=== PATIENT | male | born 1985 | race Caucasian/White ===

== ENCOUNTER 2017-04-14 16:24 | Emergency (ER) | payer OTHER ==
[~2017-04-14] VITALS: Ht 182.9 cm; Wt 141.1 kg
[2017-04-14 16:34] VITALS: TEMP 36.7; Ht 182.9 cm; Wt 141.1 kg
--- NOTE | 2017-04-14 17:20 | DIAGNOSTIC IMAGING REPORT ---
CHEST ONE VIEW PORTABLE HISTORY: Short of breath. COMPARISON: None. FINDINGS: No pneumothorax. No pleural effusions. The lungs are clear. The heart is mildly enlarged. IMPRESSION: Mild enlargement of the cardiac silhouette. Otherwise, no acute process within the chest. Electronically signed by: Myke Merritt M.D. 04/14/2017 5:19 PM Dictated Date/Time: 04/14/2017 5:18 PM
[2017-04-14 17:51] LABS: BASO % 0.1 %; BASO ABS # 0.01 K/uL (0-0.2); EOS % 2.7 %; EOS ABS # 0.18 K/uL (0-0.5); HEMATOCRIT 40.8 % (42-52); HEMOGLOBIN 14.3 g/dL (14.0-18.0); IG# 0.02 K/uL (0.00-0.02); LYMPH % 27.9 %; LYMPH ABS # 1.87 K/uL (1.2-3.4); MEAN CELL VOLUME 83.8 fL (80-100); MEAN CORPUSCULAR HEMOGLOBIN 29.4 pg (25-34); MEAN PLATELET VOLUME 8.8 fL (7.4-10.4); MONO % 9.1 %; MONO ABS # 0.61 K/uL (0.11-0.59); NEUT % 59.9 %; NEUT ABS # 4.02 K/uL (1.4-6.5); PLATELET COUNT 262 K/uL (130-400); RED CELL DISTRIBUTION WIDTH CV 12.7 % (11.5-14.5); RED CELL DISTRIBUTION WIDTH SD 38.4 fL (36.4-46.3); WHITE BLOOD COUNT 6.71 K/uL (4.8-10.8)
[2017-04-14 18:10] LABS: ALBUMIN 3.5 gm/dl (3.4-5.0); ALT/SGPT 28 U/L (12-78); BLOOD UREA NITROGEN 15 mg/dl (7-18); CALCIUM 8.5 mg/dl (8.5-10.1); CARBON DIOXIDE 28 mmol/L (21-32); CREATININE 1.22 mg/dl (0.60-1.40); GLUCOSE 95 mg/dl (70-99); LIPASE 93 U/L (73-393); POTASSIUM 3.6 mmol/L (3.5-5.1); SODIUM 138 mmol/L (136-145)
[2017-04-14 18:16] LABS: ALKALINE PHOSPHATASE 75 U/L (45-117); AST/SGOT 13 U/L (15-37); TOTAL PROTEIN 7.2 gm/dl (6.4-8.2)
--- NOTE | 2017-04-14 20:27 | DIAGNOSTIC IMAGING REPORT ---
BILATERAL LOWER EXTREMITY VENOUS DOPPLER CLINICAL HISTORY: Bilateral lower extremity swelling. COMPARISON STUDY: No previous studies for comparison. TECHNIQUE: Sonography of the deep venous system of the bilateral lower extremities was performed. Compression and augmentation were evaluated. FINDINGS: The bilateral common femoral, superficial femoral and popliteal veins were compressible. Augmentation was normal. Flow was shown within the deep calf vessels. IMPRESSION: No evidence of deep venous thrombus within the bilateral lower extremities. Electronically signed by: Edgar Ashley M.D. 04/14/2017 8:25 PM Dictated Date/Time: 04/14/2017 8:25 PM
[2017-04-14 21:35] VITALS: BP 153/68; PULSE 90; O2SAT 99
--- NOTE | 2017-04-14 23:57 | EMERGENCY ROOM VISIT NOTE ---
History Report prepared by Desiree: Cat Boston Under the Supervision of: Dr. Shakir Alvarado D.O. First contact with patient: 16:40 Chief Complaint: SWELLING TO EXTREMITY Stated Complaint: SWOLLEN/PAINFUL FEETAND ANKLES FOR 2 1/2 WKS History of Present Illness The patient is a 31 year old male who presents to the Emergency Room with complaints of worsening leg swelling starting 2.5 weeks ago. He is having swelling in his feet and ankles. The swelling seems to get worse as the day goes on. He has never had this persistent swelling before. He is having intermittent sharp chest pain which is seemingly random and last for a second. He is not having any arm or jaw pain with the chest pain. He denies any headache , change in vision, SOB, nausea, vomiting, or diarrhea. He denies any history of diabetes, hypertension, high cholesterol, heart disease, or cancer. He does not smoke. He denies any history of sudden at a young age in his family. He denies any recent surgery. He did travel 1.5 hours recently. He denies any tick bites. He does not have any medical problems. 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 He denies any shortness of breath with lying down. Source of History: patient Onset: 2.5 weeks ago Position: leg (bilateral) Quality: other (swelling) Timing: worsening Associated Symptoms: + chest pain, No headache, No SOB, No nausea, No vomiting, No diarrhea Review of Systems See HPI for pertinent positives & negatives. A total of 10 systems reviewed and were otherwise negative. Past Medical & Surgical No history of diabetes, hypertension, high cholesterol, heart disease, or cancer Family History Cancer Social History Smoking Status: Never Smoker Occupation Status: employed Current/Historical Medications No Active Prescriptions or Reported Meds Allergies Coded Allergies: No Known Allergies (Unverified , 04/14/17) Physical Exam Vital Signs Date Time Temp Pulse Resp B/P (MAP) Pulse Ox O2 Delivery O2 Flow Rate FiO2 04/14/17 21:35 90 153/68 99 04/14/17 20:51 89 145/77 99 Room Air 04/14/17 18:31 82 142/73 100 Room Air 04/14/17 16:34 36.7 89 17 141/81 98 Room Air Physical Exam GENERAL: Sitting up in bed, alert, well appearing, well nourished, no distress, non-toxic EYE EXAM: normal conjunctiva. PERRL and EOM's grossly intact. OROPHARYNX: no exudate, no erythema, lips, buccal mucosa, and tongue normal and mucous membranes are moist NECK: supple, no nuchal rigidity, no adenopathy, non-tender, no JVD LUNGS: Clear to auscultation. Normal chest wall mechanics HEART: no murmurs, S1 normal and S2 normal ABDOMEN: abdomen soft, non-tender, normo-active bowel sounds, no masses, no rebound or guarding. BACK: Back is symmetrical on inspection and there is no deformity, no midline tenderness, no CVA tenderness. SKIN: no rashes and no bruising UPPER EXTREMITIES: upper extremities are grossly normal. LOWER EXTREMITIES: Pitting edema bilateral lower extremities tracking up to the calves. NEURO EXAM: Normal sensorium, cranial nerves II-XII grossly intact, normal speech, no gross weakness of arms, no gross weakness of legs. Medical Decision & Procedures ER Provider Diagnostic Interpretation: Xray results as stated below per my and the radiologist's interpretation. Radiology results as stated below per my review and the radiologist's interpretation: CHEST ONE VIEW PORTABLE HISTORY: Short of breath. COMPARISON: None. FINDINGS: No pneumothorax. No pleural effusions. The lungs are clear. The heart is mildly enlarged. IMPRESSION: Mild enlargement of the cardiac silhouette. Otherwise, no acute process within the chest. Electronically signed by: Myke Merritt M.D. 04/14/2017 5:19 PM Dictated Date/Time: 04/14/2017 5:18 PM BILATERAL LOWER EXTREMITY VENOUS DOPPLER CLINICAL HISTORY: Bilateral lower extremity swelling. COMPARISON STUDY: No previous studies for comparison. TECHNIQUE: Sonography of the deep venous system of the bilateral lower extremities was performed. Compression and augmentation were evaluated. FINDINGS: The bilateral common femoral, superficial femoral and popliteal veins were compressible. Augmentation was normal. Flow was shown within the deep calf vessels. IMPRESSION: No evidence of deep venous thrombus within the bilateral lower extremities. Electronically signed by: Edgar Ashley M.D. 04/14/2017 8:25 PM Dictated Date/Time: 04/14/2017 8:25 PM Laboratory Results 04/14/17 17:23 Red Blood Count 4.87, Mean Corpuscular Volume 83.8, Mean Corpuscular Hemoglobin 29.4, Mean Corpuscular Hemoglobin Concent 35.0, Mean Platelet Volume 8.8, Neutrophils (%) (Auto) 59.9, Lymphocytes (%) (Auto) 27.9, Monocytes (%) (Auto) 9.1, Eosinophils (%) (Auto) 2.7, Basophils (%) (Auto) 0.1, Neutrophils # (Auto) 4.02, Lymphocytes # (Auto) 1.87, Monocytes # (Auto) 0.61, Eosinophils # (Auto) 0.18, Basophils # (Auto) 0.01 04/14/17 17:23 Test 04/14/17 17:23 04/14/17 17:25 White Blood Count 6.71 K/uL (4.8-10.8) Red Blood Count 4.87 M/uL (4.7-6.1) Hemoglobin 14.3 g/dL (14.0-18.0) Hematocrit 40.8 % (42-52) Mean Corpuscular Volume 83.8 fL (80-100) Mean Corpuscular Hemoglobin 29.4 pg (25-34) Mean Corpuscular Hemoglobin Concent 35.0 g/dl (32-36) Platelet Count 262 K/uL (130-400) Mean Platelet Volume 8.8 fL (7.4-10.4) Neutrophils (%) (Auto) 59.9 % Lymphocytes (%) (Auto) 27.9 % Monocytes (%) (Auto) 9.1 % Eosinophils (%) (Auto) 2.7 % Basophils (%) (Auto) 0.1 % Neutrophils # (Auto) 4.02 K/uL (1.4-6.5) Lymphocytes # (Auto) 1.87 K/uL (1.2-3.4) Monocytes # (Auto) 0.61 K/uL (0.11-0.59) Eosinophils # (Auto) 0.18 K/uL (0-0.5) Basophils # (Auto) 0.01 K/uL (0-0.2) RDW Standard Deviation 38.4 fL (36.4-46.3) RDW Coefficient of Variation 12.7 % (11.5-14.5) Immature Granulocyte % (Auto) 0.3 % Immature Granulocyte # (Auto) 0.02 K/uL (0.00-0.02) Anion Gap 5.0 mmol/L (3-11) Est Creatinine Clear Calc Drug Dose 125.5 ml/min Estimated GFR () 89.7 Estimated GFR (Non- 77.4 BUN/Creatinine Ratio 12.0 (10-20) Calcium Level 8.5 mg/dl (8.5-10.1) Total Bilirubin 0.4 mg/dl (0.2-1) Direct Bilirubin 0.1 mg/dl (0-0.2) Aspartate Amino Transf (AST/SGOT) 13 U/L (15-37) Alanine Aminotransferase (ALT/SGPT) 28 U/L (12-78) Alkaline Phosphatase 75 U/L (45-117) Troponin I < 0.015 ng/ml (0-0.045) Pro-B-Type Natriuretic Peptide 98 pg/ml (0-450) Total Protein 7.2 gm/dl (6.4-8.2) Albumin 3.5 gm/dl (3.4-5.0) Lipase 93 U/L (73-393) Urine Color YELLOW Urine Appearance CLEAR (CLEAR) Urine pH 5.0 (4.5-7.5) Urine Specific [place] 1.027 (1.000-1.030) Urine Protein NEG (NEG) Urine Glucose (UA) NEG (NEG) Urine Ketones NEG (NEG) Urine Occult Blood NEG (NEG) Urine Nitrite NEG (NEG) Urine Bilirubin NEG (NEG) Urine Urobilinogen NEG (NEG) Urine Leukocyte Esterase NEG (NEG) Urine WBC (Auto) 1-5 /hpf (0-5) Urine RBC (Auto) 0-4 /hpf (0-4) Urine Hyaline Casts (Auto) 1-5 /lpf (0-5) Urine Epithelial Cells (Auto) 5-10 /lpf (0-5) Urine Bacteria (Auto) NEG (NEG) Laboratory results per my review. ECG Indication: chest pain Rate (beats per minute): 78 Rhythm: sinus rhythm Findings: no ectopy, other (normal axis) Change: Patient's electrocardiogram interpreted by me. ED Course ED COURSE: Vital signs were reviewed and showed normal vitals. The patients medical record was reviewed The above diagnostic studies were performed and reviewed. ED treatments and interventions as stated above. 1645: The patient was evaluated in room A6. A complete history and physical examination was performed. 2109: Upon reevaluation, the patient is resting comfortably. I discussed my findings with the patient and he understands and agrees with the treatment plan. Based on the patients age, coexisting illnesses, exam and lab findings the decision to treat as an outpatient was made. The patient remained stable while under my care. The patient appeared well at the time of discharge. Medical Decision Differential diagnosis: DVT, CHF, nephrotic syndrome, nephritic syndrome, MT, abdominal mass. Patient is a 31-year-old male who presents to ER for swelling in his feet and tibias. He is neurologically intact. CBC all BMP, LFTs, bilirubin and troponin , BNP, and lipase is unremarkable. UA was negative. Chest x-ray shows a slightly enlarged heart. Bedside ultrasound shows no pericardial effusion. No protein on UA. Duplex of bilateral lower extremities shows no DVTs. Patient was updated bedside. Uncertain of the true etiology of his edema in his lower extremities. I did recommend elevation and following up with his PCP in 24 hours for repeat exam to see if this helps improve symptoms. He doesn't have any cardiac symptoms at this time. Discussed with Pt concerning signs and symptoms to watch out for. Pt was instructed to follow up with their PCP and discussed with the patient their option to return to the ED at anytime for persistent or worsening symptoms. The appropriate anticipatory guidance and out- patient management, including indications for return to the emergency department , were explained at length to the patient and understood. Medication Reconcilliation Current Medication List: was personally reviewed by me Blood Pressure Screening Patient's blood pressure: Normal blood pressure Blood pressure disposition: Did not require urgent referral Impression Primary Impression: Swelling of both lower extremities Scribe Attestation The scribe's documentation has been prepared under my direction and personally reviewed by me in its entirety. I confirm that the note above accurately reflects all work, treatment, procedures, and medical decision making performed by me. Departure Information Dispostion Home / Self-Care Prescriptions No Active Prescriptions or Reported Meds Referrals Simran Brown Forms HOME CARE DOCUMENTATION FORM, IMPORTANT VISIT INFORMATION, WORK / SCHOOL INSTRUCTIONS Patient Instructions ED Leg Swelling Bilateral, My [employer] Additional Instructions Please follow up with your primary care doctor with in the next 24 hours. Any worsening of your symptoms, please return to the ED immediately. This includes any fevers greater than 100.4, worsening pain, chest pain, shortness breath, unable to sleep lying flat, persistent nausea, vomiting, unable to eat or drink , or any other concerning signs or symptoms from your standpoint. Please keep her legs elevated as much as possible.
== END 2017-04-14 21:40 | disposition home or self-care (01) ==
LOC: C.EDB 16:26 → C.EDA 21:40
DX: R60.0 Localized edema (principal)